=== PATIENT | male | born 1970 | race Asian ===

== ENCOUNTER 2017-07-07 06:52 | Day surgery (SDC) | payer OTHER ==
--- NOTE | 2017-06-09 14:20 | HP ---
SURGICAL ADMISSION HISTORY AND PHYSICAL DATE OF ADMISSION: 07/07/2017 DATE OF DICTATION: 06/08/2017 Patient to be admitted through the [facility] on July 07, 2017. HISTORY: This is a 47-year-old man admitted through the [facility] for excision of a progressively enlarging soft tissue mass of the posterior aspect of the right shoulder. According to the patient, the mass has been present for at least a year's time. Progressively enlarging and associated with discomfort. PAST MEDICAL HISTORY: No significant past medical history. No history of hypertension, heart disease, diabetes, respiratory, renal, or hepatic insufficiency. PAST SURGICAL HISTORY: Nil. ALLERGIES: None known. REGULAR MEDICATIONS: Simvastatin. SOCIAL HISTORY: Negative tobacco, occasional alcohol. FAMILY HISTORY: Mother: History of Parkinson disease. REVIEW OF SYSTEMS: Otherwise nil. PHYSICAL EXAMINATION: The patient has a large 4 x 5 cm soft tissue mass of the right upper back, which appears to be somewhat intermittently associated with the overlying skin. Although it may represent a soft tissue neoplasia, the possibility of this representing an enlarging epidermal inclusion cyst is entertained. IMPRESSION: Soft tissue mass, right upper back. PLAN: Excision of soft tissue mass, right upper back under local anesthesia with sedation. Indications, alternatives, possible complications reviewed. Consent obtained. Patient will be seen preoperatively by Dr. Donal Guerin. Please refer to his notes for those medical details. YESENIA GOLD M.D. [id number] cc: Ambulatory Surgery Donal Guerin MD
[2017-06-28 13:44] VITALS: BMI 25.0
[2017-07-07] MEDS ORDERED: LIDOCAINE HCL 1%, 10 MG/ML (20ML VIAL) ONE (08:21)
[2017-07-07] MEDS ORDERED: LIDOCAINE 1%/EPI 1:100000 (20 ML MULTI DOSE VIAL) ONE (08:29)
[2017-07-07] MEDS ORDERED: KETOROLAC TROMETHAMINE 30 MG/1 ML VIAL ONE (08:47)
[2017-07-07] MEDS ORDERED: ceFAZolin SODIUM 1 GM VIAL ONE (08:47)
[2017-07-07] MEDS ORDERED: MIDAZOLAM HCL 2 MG/2 ML SINGLE DOSE VIAL ONE ×2 (08:47→09:33)
[2017-07-07] MEDS ORDERED: DEXAMETHASONE SOD PHOSPHATE 4 MG/1 ML VIAL ONE (08:47)
[2017-07-07] MEDS ORDERED: ONDANSETRON 4 MG/2 ML VIAL ONE (08:47)
[2017-07-07] MEDS ORDERED: LIDOCAINE 1%/EPI 1:100000 (20 ML MULTI DOSE VIAL) IJ ONE (09:54)
[2017-07-07 10:33] VITALS: TEMP 98.3
--- NOTE | 2017-07-07 10:41 | HP ---
DATE OF ADMISSION: 07/07/2017 HISTORY: This is an updated history and physical on a patient which was originally dictated on June 08, 2017. Please refer to that note, as well. There is no significant change in the history and physical. This 47-year-old man was admitted for excision of progressively enlarging soft tissue mass of the posterior right shoulder. PAST MEDICAL HISTORY: No past medical history. No history of hypertension, heart disease, diabetes, respiratory, renal, or hepatic insufficiency. PAST SURGICAL HISTORY: Nil. ALLERGIES: None known. MEDICATIONS: Simvastatin. SOCIAL HISTORY: Negative for tobacco. Occasional alcohol. FAMILY HISTORY: Mother with history of Parkinson's disease. REVIEW OF SYSTEMS: Nil. PHYSICAL EXAMINATION: No change from previously dictated. A large 4 x 5 cm soft tissue mass of the right upper back, which appears to be intermittently associated with the overlying skin. No obvious satellite lesions. No regional lymphadenopathy. IMPRESSION: Enlarging soft tissue mass, right upper back. PLAN: Excision of enlarging soft tissue mass, right upper back, under local anesthesia with sedation. Indications, alternatives, possible complications were reviewed. Consent obtained. YESENIA GOLD M.D. [id number]
--- NOTE | 2017-07-07 11:22 | OP ---
DATE OF OPERATION: 07/07/2017 PREOPERATIVE DIAGNOSIS: Soft tissue mass, right upper back. POSTOPERATIVE DIAGNOSIS: Soft tissue mass, right upper back. PROCEDURE: Excision soft tissue mass, right upper back, intermediate wound closure (5 cm) OPERATING SURGEON: Trevin Vega MD ANESTHESIA: Cassia Rice MD - Lidocaine 1% with epinephrine (20 mL)/sedation as per Anesthesia. HISTORY: This is a 47-year-old man with a progressively enlarging soft tissue mass at the posterior aspect of the right shoulder region of the right upper back. He presents for formal excision. Indications, alternatives, and possible complications reviewed. Consent was obtained. DESCRIPTION OF PROCEDURE: With the patient in the prone position, the right upper back/posterior right shoulder was prepped and draped in sterile fashion using Betadine. A 5-cm elliptical incision was made about the large palpable abnormality and deepened into the subcutaneous space. The lesion was excised in its entirety without violating the lesion itself, excising the mass with a rim of overlying and surrounding normal- appearing skin as well as underlying subcutaneous fat. After excision of the mass, adequate hemostasis was ensured. The wound was irrigated. The wound was closed in layers. The subcutaneous tissues were approximated using interrupted 3-0 chromic sutures. The subcuticular layer was approximated using interrupted 3-0 Vicryl sutures. The skin edges were approximated using continuous 5-0 nylon suture. Dermabond applied. Procedure was terminated. INSTRUMENT COUNT: Correct. ESTIMATED BLOOD LOSS: Minimal. SPECIMENS: Soft tissue mass, right upper back. DRAINS: None. Patient tolerated the procedure. The procedure was terminated. Josue DODSON/[id number] MTDD
[2017-07-07 11:56] VITALS: BP 136/74; PULSE 80
--- NOTE | 2017-07-13 11:36 | PATH ---
Surgical Pathology Report Patient Name: JANA MAURO [facility]. Rec. #: [id number] /Age/Gender: 1970 (Age: 47) / M Account: [id number] Location: [facility] Taken: 07/07/2017 Received: 07/07/2017 Reported: 07/13/2017 Physicians: Trevin Vega M.D. Specimen(s) Received SOFT TISSUE MASS RIGHT UPPER BACK Clinical History Soft tissue mass right upper back Final Diagnosis SOFT TISSUE, RIGHT UPPER BACK, EXCISION: SPINDLE CELL LIPOMA. Comment: Sections reveal a well demarcated lesion composed of benign adipose tissue admixed with a proliferation of bland spindle cells and collagen. Immunohistochemical stains performed and interpreted at [facility] show the following results: The spindle cells are negative with AE1/3 and smooth muscle myosin heavy chain, while S100 stains benign adipose tissue. Immunohistochemical stains performed at [place], [place] ([id number]) and interpreted at [facility] show the following results: The spindle cells are strongly positive with vimentin and CD34, and are negative in specimen, smooth muscle actin, and CD117. Ki67 shows a low proliferative index. Electronically Signed Hilton Mendez M.D. Gross Description Received in formalin labeled "soft tissue mass right upper back," is a 6.3 x 3.5 x 3.5 cm unoriented portion of soft tissue which is surfaced by a 5.6 x 2.2 cm dean, elliptical, unremarkable portion of skin. Sectioning reveals a 3.7 x 3.3 x 2.6 cm well circumscribed pink-dean, smooth mass. Furniture [employer] sections are submitted in 4 cassettes. /07/08/2017 saudi07/08/2017
== END 2017-07-07 11:00 | disposition home or self-care (01) ==
LOC: FASU 06:52
PROVIDERS: ATTEND Surgery
PROC: 0JB70ZX Excision of Back Subcutaneous Tissue and Fascia, Open Approach, Diagnostic (ICD-10-PCS; principal; 2017-07-07 09:13)
DX: D17.1 Benign lipomatous neoplasm of skin and subcutaneous tissue of trunk (principal)
CPT/HCPCS: 88305-TC; 88341-TC; 88342-TC